=== PATIENT | male | born 1940 | race Two or more races ===

== ENCOUNTER 2025-04-01 12:24 | Inpatient (IN) | payer MEDICARE, OTHER ==
[~2025-04-01] VITALS: Ht 182.9 cm; Wt 103.4 kg
[~2025-04-01 12:24] MED LIST: AMOX500C2 PO
[2025-04-01 12:59] LABS: PLATELET COUNT (AUTO) 390 K/uL (150-450); RED BLOOD CELL COUNT(AUTO) 4.60 MIL/uL (4.5-6.0); RED CELL DISTRIBUTION WIDTH 17.0 % (11.5-15.0); WHITE BLOOD COUNT (AUTO) 20.8 K/uL (4.3-11.0)
[2025-04-01] MEDS ORDERED: ONDANSETRON HCL/PF 4 MG/2 ML VIAL ONE (13:08)
[2025-04-01] MEDS: ONDANSETRON HCL/PF - ER 4 MG/2 ML VIAL IV ONE (13:13)
[2025-04-01] MEDS ORDERED: CEFTRIAXONE 1GM BAG (ER ONLY) 50 ML IV ONE (13:15)
[2025-04-01 13:18] LABS: CALCIUM, SERUM 8.7 mg/dL (8.5-10.1); CREATININE 0.7 mg/dL (0.6-1.3); SODIUM SERUM 136 mmol/L (136-145); UREA NITROGEN, BLOOD 22 mg/dL (7-18)
[2025-04-01] MEDS: CEFTRIAXONE 1GM BAG (ER ONLY) 1 GM/50 ML PIGGYBACK IV ONE (13:20)
[2025-04-01 13:26] LABS: INR 1.16 (0.91-1.10)
[2025-04-01 13:28] LABS: LACTIC ACID 1.3 mmol/L (0.4-2.0)
[2025-04-01 13:35] LABS: ASPARTATE AMINOTRANSFERASE 87 U/L (15-37); TOTAL PROTEIN, SERUM 6.3 g/dL (6.4-8.2)
[2025-04-01 14:20] VITALS: BP 129/71; TEMP 98.1; O2SAT 97
[2025-04-01] MEDS ORDERED: ONDANSETRON HCL/PF 4 MG/2 ML VIAL IVP PRN (14:30)
[2025-04-01] MEDS ORDERED: Z GUARD REMEDY 4 OZ OINT TP PRN (14:30)
[2025-04-01] MEDS: PANTOPRAZOLE 40 MG VIAL IV SCH (15:54)
[2025-04-01 16:00] VITALS: BP 129/77; TEMP 97.7; O2SAT 99
[2025-04-01] MEDS: IV D5/0.45 NACL 1,000 ML IV PRN (18:26)
[2025-04-01 20:00] VITALS: BP 109/69; TEMP 97.7; O2SAT 97
[2025-04-02] VITALS: BP 120/85; TEMP 97.7; O2SAT 100
[2025-04-02 02:50] LABS: APPEARANCE,URINE CLEAR (CLEAR); BLOOD, URINE NEGATIVE Ery/uL (NEGATIVE); LEUKOCYTE ESTERASE ,URINE NEGATIVE (NEGATIVE); NITRITE, URINE NEGATIVE (NEGATIVE); UGLUCOSE NEGATIVE (NEGATIVE)
[2025-04-02 03:12] LABS: ADD URINE CULTURE NO; SQUAMOUS EPITHELIAL CELL,UR Moderate /HPF (None Seen)
[2025-04-02 04:00] VITALS: BP 110/80; TEMP 97.8; O2SAT 98
[2025-04-02 07:24] LABS: CALCIUM, SERUM 8.7 mg/dL (8.5-10.1); CREATININE 0.9 mg/dL (0.6-1.3); PHOSPHORUS 3.5 mg/dL (2.5-4.9); SODIUM SERUM 135.0 mmol/L (136-145); UREA NITROGEN, BLOOD 16.0 mg/dL (7-18)
[2025-04-02 08:00] VITALS: BP 119/83; TEMP 97.3; O2SAT 100
[2025-04-02 08:00] LABS: PLATELET COUNT (AUTO) 387 K/uL (150-450); RED BLOOD CELL COUNT(AUTO) 4.63 MIL/uL (4.5-6.0); RED CELL DISTRIBUTION WIDTH 16.8 % (11.5-15.0); WHITE BLOOD COUNT (AUTO) 18.5 K/uL (4.3-11.0)
[2025-04-02] MEDS: Magnesium 1GM/D5W 100ML PREMIX 100 ML IV SCH (09:26)
[2025-04-02] MEDS ORDERED: SEMA0.25 SQ (09:58)
[2025-04-02] MEDS ORDERED: PROP20TA19 PO (09:58)
[2025-04-02] MEDS ORDERED: LISI20TA30 PO (09:58)
[2025-04-02] MEDS ORDERED: APIX5TAB PO (09:58)
[2025-04-02] MEDS ORDERED: FLUT1BLS6 INH (09:58)
[2025-04-02] MEDS ORDERED: GLUC1KIT IM (09:58)
[2025-04-02] MEDS ORDERED: METF-442 PO (09:58)
[2025-04-02] MEDS ORDERED: LEVO137T2 PO (09:58)
[2025-04-02] MEDS ORDERED: SIMV-46 PO (09:58)
[2025-04-02] MEDS ORDERED: ACET325T53 PO (09:58)
[2025-04-02] MEDS ORDERED: MONT10TA22 PO (09:58)
[2025-04-02] MEDS ORDERED: PREG150C PO (09:58)
[2025-04-02] MEDS ORDERED: ONDA-97 PO (09:58)
[2025-04-02] MEDS ORDERED: CYAN-51 PO (09:58)
[2025-04-02] MEDS ORDERED: TAMS-12 PO (09:58)
[2025-04-02] MEDS ORDERED: FURO40TA5 PO (09:58)
[2025-04-02 16:00] VITALS: BP 122/75; TEMP 98.6; O2SAT 99
[2025-04-02 20:00] VITALS: BP 131/73; TEMP 97.5; O2SAT 99
[2025-04-02] MEDS: ZOLPIDEM TARTRATE 5 MG TABLET PO PRN (21:14)
[2025-04-03 04:00] VITALS: BP 130/81; TEMP 98.8; O2SAT 99
[2025-04-03 07:13] LABS: PLATELET COUNT (AUTO) 343 K/uL (150-450); RED BLOOD CELL COUNT(AUTO) 4.61 MIL/uL (4.5-6.0); RED CELL DISTRIBUTION WIDTH 16.8 % (11.5-15.0); WHITE BLOOD COUNT (AUTO) 15.9 K/uL (4.3-11.0)
[2025-04-03 08:05] LABS: ASPARTATE AMINOTRANSFERASE 63.0 U/L (15-37); CALCIUM, SERUM 8.2 mg/dL (8.5-10.1); CREATININE 0.6 mg/dL (0.6-1.3); PHOSPHORUS 3.0 mg/dL (2.5-4.9); SODIUM SERUM 133.0 mmol/L (136-145); TOTAL PROTEIN, SERUM 5.8 g/dL (6.4-8.2); UREA NITROGEN, BLOOD 14.0 mg/dL (7-18)
[2025-04-03] MEDS ORDERED: PANTOPRAZOLE 40 MG/PACK PACK PO SCH (14:00)
== END 2025-04-03 15:02 | DRG 392 ==
LOC: ER 12:33 → TELE1 14:06 → MEDSG1 04-02 09:34
DX: K29.70 Gastritis, unspecified, without bleeding (principal); C78.6 Secondary malignant neoplasm of retroperitoneum and peritoneum; I85.10 Secondary esophageal varices without bleeding; K76.6 Portal hypertension; R18.8 Other ascites; K74.60 Unspecified cirrhosis of liver; E11.40 Type 2 diabetes mellitus with diabetic neuropathy, unspecified; Z66 Do not resuscitate; I10 Essential (primary) hypertension; I48.91 Unspecified atrial fibrillation; J44.9 Chronic obstructive pulmonary disease, unspecified; N40.0 Benign prostatic hyperplasia without lower urinary tract symptoms; G47.30 Sleep apnea, unspecified; Z85.46 Personal history of malignant neoplasm of prostate; M79.7 Fibromyalgia; Z88.8 Allergy status to other drugs, medicaments and biological substances; Z91.048 Other nonmedicinal substance allergy status; R79.89 Other specified abnormal findings of blood chemistry; E11.51 Type 2 diabetes mellitus with diabetic peripheral angiopathy without gangrene; Z95.828 Presence of other vascular implants and grafts; Z87.2 Personal history of diseases of the skin and subcutaneous tissue; Z51.5 Encounter for palliative care; B18.2 Chronic viral hepatitis C; F10.90 Alcohol use, unspecified, uncomplicated; Y90.9 Presence of alcohol in blood, level not specified; Z85.05 Personal history of malignant neoplasm of liver; D72.829 Elevated white blood cell count, unspecified; Z85.07 Personal history of malignant neoplasm of pancreas; Z79.85 Long-term (current) use of injectable non-insulin antidiabetic drugs; Z79.84 Long term (current) use of oral hypoglycemic drugs; Z79.890 Hormone replacement therapy; Z79.01 Long term (current) use of anticoagulants; Z79.51 Long term (current) use of inhaled steroids; Z79.899 Other long term (current) drug therapy
CPT/HCPCS: 36415; 71045-TC; 80048-TC; 80053-TC; 80076-TC; 81001; 83605-TC; 83690-TC; 83735-TC; 84100-TC; 84484-TC; 85025-TC; 85730-TC; 87040-TC; 87081-TC; 87086-TC; 97110-TC; 97116-TC; 97530-TC; A4349; A6253; A6403; G0378; J0696; J2405; J2470; J3475; J3490